=== PATIENT | female | born 1950 | race Caucasian/White ===

== ENCOUNTER → 2017-05-24 | Outpatient (CLI) | payer MEDICARE, OTHER ==
[~2017-05-24] MED LIST: ACETAMINOPHEN-1 EAC1 PO; ASPIRIN325 PO; CENTRUM SILVER1 EAC4 PO; CRESTOR10 MG PO; FISH OIL 1,001000 M2 PO; FLEXERIL PO; LEXAPRO 10 MG T10 M2 PO; LISINOPRIL20 MG PO; LOVENOX40 MG/0.4 SQ; NAPROSYN500 MG PO; NORCO 5-325 TA1 EAC1 PO; NORCO 5-325 TA1 EACH PO; NORVASC2.5 MG PO; PERCOCET 5-3251 EACH PO; PROAIR HFA8.5 GM INH; SAVELLA50 MG PO; TRAMADOL 50 MG50 MG PO; TRAZODONE HCL50 MG PO; UNK ANTIDEPRESSANT; VITAMIN D1000 UNI1 PO; [UNRECOGNIZED DRUG - OTHER] PO
== END ==
LOC: M.ULTRA 07:52
DX: R79.89 Other specified abnormal findings of blood chemistry (principal); R74.8 Abnormal levels of other serum enzymes

== ENCOUNTER 2018-01-16 13:52 | Emergency (ER) | payer MEDICARE, OTHER ==
[~2018-01-16] VITALS: Ht 167.6 cm; Wt 68.0 kg
[~2018-01-16 13:52] MED LIST changes: -LEXAPRO 10 MG T10 M2 PO; -NORVASC2.5 MG PO; -PERCOCET 5-3251 EACH PO
[2018-01-16] MEDS ORDERED: NORVASC2.5 MG PO (14:10)
[2018-01-16] MEDS ORDERED: LEXAPRO 10 MG T10 M2 PO (14:11)
[2018-01-16 14:39] LABS: ABSOLUTE LYMPHOCYTES 1.5 thou/uL (0.8-5.3); ABSOLUTE MONOCYTES 0.4 thou/uL (0.0-1.2); ABSOLUTE NEUTROPHILS 5.8 thou/uL (1.6-8.1); BASOPHILS 0.6 %; EOSINOPHILS 0.5 %; HEMOGLOBIN 11.5 gm/dL (12.0-15.0); LYMPHOCYTES 19.1 %; MCH 35.7 pg (26.0-34.0); MCHC 34.9 g/dL (28.0-37.0); MCV 102.1 fL (80.0-100.0); MONOCYTES 5.6 %; MPV 7.2 fl. (7.2-11.1); NUCLEATED RBCS 0 /100WBC; PLATELET COUNT* 369 thou/uL (150-400); POLYS 74.2 %; RBC 3.23 mil/uL (4.20-5.00); RDW-CV 14.5 % (10.5-14.5); WBC 7.8 thou/uL (4.0-11.0)
[2018-01-16 14:49] LABS: ALBUMIN 3.9 g/dL (3.4-5.0); CALCIUM 9.3 mg/dL (8.5-10.1); CREATININE 1.2 mg/dL (0.6-1.3); POTASSIUM 3.3 mmol/L (3.5-5.1); TOTAL BILIRUBIN 0.5 mg/dL (<0.1-1.0); TOTAL PROTEIN 8.1 g/dL (6.4-8.2)
[2018-01-16 14:49] LABS: URINE BILIRUBIN NEGATIVE (Negative); URINE BLOOD TRACE (Negative); URINE CLARITY CLEAR; URINE COLOR YELLOW; URINE GLUCOSE-RANDOM NEGATIVE (Negative); URINE KETONES NEGATIVE (Negative); URINE LEUKOCYTES-REFLEX 1+ (Negative); URINE NITRITE-REFLEX NEGATIVE (Negative); URINE PROTEIN TRACE (Negative); URINE UROBILINOGEN 0.2 E.U./dl (0.2-1.0)
[2018-01-16 15:05] LABS: HYALINE CASTS >10 Many /LPF (None Seen); SQUAMOUS >10 Many /LPF (0-3)
[2018-01-16 15:07] LABS: URIC ACID CRYSTALS 4-10 Moderate /LPF (None Seen)
[2018-01-16 15:08] LABS: BACTERIA-REFLEX 1-9 Few /HPF (None Seen); MUCUS None Seen strn/LPF (None Seen); URINE RBC 0-2 Rare /HPF (0-2)
[2018-01-16 15:09] LABS: URINE WBC-REFLEX 0-5 Rare /HPF (0-5)
[2018-01-16] MEDS ORDERED: FLEXERIL PO (16:01)
[2018-01-16] MEDS ORDERED: PERCOCET 5-3251 EACH PO (16:01)
[2018-01-16 16:40] VITALS: BP 149/82
== END 2018-01-16 16:41 | disposition home or self-care (01) ==
LOC: M.ERS 13:52
PROVIDERS: Emergency Medicine
DX: S22.31XA Fracture of one rib, right side, initial encounter for closed fracture (principal); R11.2 Nausea with vomiting, unspecified; I10 Essential (primary) hypertension; E78.5 Hyperlipidemia, unspecified; M79.7 Fibromyalgia; M19.90 Unspecified osteoarthritis, unspecified site; Z90.710 Acquired absence of both cervix and uterus; Z88.5 Allergy status to narcotic agent; Z88.6 Allergy status to analgesic agent; Z88.2 Allergy status to sulfonamides; W18.39XA Other fall on same level, initial encounter; Y93.89 Activity, other specified; Y92.89 Other specified places as the place of occurrence of the external cause; Y99.8 Other external cause status

== ENCOUNTER → 2018-02-13 | Outpatient (CLI) | payer MEDICARE, OTHER ==
[~2018-02-13] MED LIST changes: +LEXAPRO 10 MG T10 M2 PO; +NORVASC2.5 MG PO; +PERCOCET 5-3251 EACH PO
== END ==
LOC: M.MRI 02-08 15:58
DX: S62.397A Other fracture of fifth metacarpal bone, left hand, initial encounter for closed fracture (principal); G35 Multiple sclerosis; R29.6 Repeated falls; R29.90 Unspecified symptoms and signs involving the nervous system; G93.9 Disorder of brain, unspecified; X58.XXXA Exposure to other specified factors, initial encounter; Y93.89 Activity, other specified; Y92.89 Other specified places as the place of occurrence of the external cause; Y99.8 Other external cause status; Z91.81 History of falling

== ENCOUNTER → 2018-04-18 | Outpatient (CLI) | payer MEDICARE, OTHER | LOC: M.MRI 07:09 | DX: S83.242A Other tear of medial meniscus, current injury, left knee, initial encounter (principal); X58.XXXA Exposure to other specified factors, initial encounter; Y93.89 Activity, other specified; Y92.89 Other specified places as the place of occurrence of the external cause; Y99.8 Other external cause status ==

== ENCOUNTER → 2018-06-05 | Outpatient (CLI) | payer MEDICARE, OTHER | LOC: M.ULTRA 07:30 | DX: K70.30 Alcoholic cirrhosis of liver without ascites (principal); K76.0 Fatty (change of) liver, not elsewhere classified ==

== ENCOUNTER 2018-11-23 12:12 | Inpatient (IN) | payer MEDICARE, OTHER ==
[~2018-11-23] VITALS: Ht 167.6 cm; Wt 72.0 kg
[2018-11-23 12:45] VITALS: BP 126/58
[2018-11-23 13:47] LABS: PCO2 30.1 mmHg (35.0-45.0); PO2 65.6 mmHg (75.0-100.0); pH 7.564 (7.340-7.450)
[2018-11-23 14:11] LABS: HEMATOCRIT 35.5 % (37.0-47.0); HEMOGLOBIN 12.3 gm/dL (12.0-15.0); MCH 35.6 pg (26.0-34.0); MCHC 34.7 g/dL (28.0-37.0); MCV 102.3 fL (80.0-100.0); MPV 8.4 fl. (7.2-11.1); NUCLEATED RBCS 0 /100WBC; PLATELET COUNT* 295 thou/uL (150-400); RBC 3.47 mil/uL (4.20-5.00); RDW-CV 13.6 % (10.5-14.5); WBC 9.9 thou/uL (4.0-11.0)
[2018-11-23 14:25] LABS: CREATININE 1.4 mg/dL (0.6-1.3)
[2018-11-23 14:28] LABS: POTASSIUM 2.6 mmol/L (3.5-5.1)
[2018-11-23 14:30] LABS: ALBUMIN 2.4 g/dL (3.4-5.0); TOTAL BILIRUBIN 0.9 mg/dL (<0.1-1.0); TOTAL PROTEIN 6.2 g/dL (6.4-8.2)
[2018-11-23 14:44] LABS: ABSOLUTE LYMPHOCYTES 0.5 thou/uL (0.8-5.3); ABSOLUTE MONOCYTES 0.3 thou/uL (0.0-1.2); ABSOLUTE NEUTROPHILS 9.1 thou/uL (1.6-8.1)
[2018-11-23 14:45] LABS: PLATELET ESTIMATE ADEQUATE
--- NOTE | 2018-11-23 14:54 | EKG ---
[place] [address] ELECTROCARDIOGRAM REPORT Name: VANCE STEINBERG Room: [address] ADM IN M.R.#: [id number] Admission: 11/23/18 Attend Phys: Tadeo Foss MD Discharge: Date of : 50 Report #: [id number] THIS REPORT FOR: //name// [facility] Test Date: 2018-11-23 Test Time: 14:49:41 Pat Name: VANCE STEINBERG Department: Room: [address] Gender: F Global Account Manager: MARY : 1950 Requested By: Tadeo Foss Order Number: [id number] Reading MD: Lexx Radford Measurements Intervals [place] Rate: 95 P: 49 OR: 159 QRS: -26 QRSD: 111 T: 45 QT: 453 QTc: 570 Interpretive Statements Sinus rhythm Probable left atrial enlargement Borderline left axis deviation RSR' in V1 or V2, probably normal variant Prolonged QT interval Compared to ECG 09/24/2015 21:20:33 Prolonged QT interval now present Electronically Signed On 11-23-2018 14:53:57 CDT by Lexx Radford [email or web address] <ELECTRONICALLY SIGNED> By: Lexx Radford MD, [facility] 11/23/18 1453 1449 1449 Lexx Radford MD, [facility] /EPI
[2018-11-23 15:37] VITALS: BP 118/62
[2018-11-23 16:01] LABS: CALCIUM 8.5 mg/dL (8.5-10.1); CREATININE 1.3 mg/dL (0.6-1.3)
[2018-11-23 20:00] VITALS: BP 95/52
[2018-11-23 20:19] LABS: CALCIUM 8.5 mg/dL (8.5-10.1); CREATININE 1.3 mg/dL (0.6-1.3); POTASSIUM 3.2 mmol/L (3.5-5.1)
[2018-11-23 20:33] LABS: URINE BILIRUBIN NEGATIVE (Negative); URINE BLOOD NEGATIVE (Negative); URINE CLARITY CLEAR; URINE COLOR YELLOW; URINE GLUCOSE-RANDOM NEGATIVE (Negative); URINE KETONES NEGATIVE (Negative); URINE LEUKOCYTES-REFLEX NEGATIVE (Negative); URINE NITRITE-REFLEX NEGATIVE (Negative); URINE PROTEIN NEGATIVE (Negative); URINE SPECIFIC GRAVITY <= 1.005 (1.005-1.030); URINE UROBILINOGEN 0.2 E.U./dl (0.2-1.0)
[2018-11-23] MEDS ORDERED: FLEXERIL PO (20:44)
[2018-11-24] VITALS (7 sets, daily range): BP systolic 90–130; BP diastolic 46–74
[2018-11-24 04:49] LABS: HEMATOCRIT 30.9 % (37.0-47.0); HEMOGLOBIN 10.5 gm/dL (12.0-15.0); MCH 35.4 pg (26.0-34.0); MPV 7.9 fl. (7.2-11.1); RBC 2.97 mil/uL (4.20-5.00); RDW-CV 13.7 % (10.5-14.5); WBC 4.7 thou/uL (4.0-11.0)
[2018-11-24 05:06] LABS: CALCIUM 8.7 mg/dL (8.5-10.1); MAGNESIUM 1.5 mg/dL (1.8-2.4); POTASSIUM 3.2 mmol/L (3.5-5.1)
--- NOTE | 2018-11-24 05:14 | NUR ---
ASSUMED CARE OF PT AFTER REPORT AT 1930. PT A&OX4. VSS. PHYSICAL ASSESSMENT COMPLETED AND CHARTED. PT ON O2 AT 2L NC. PT TRACING SR ON TELE. PT UPSTANDBY TO RESTROOM. PT COMPLAINED OF BODY ACHE- DR JEFFERY INFORMED WITH NEW ORDER. MEDS GIVEN PER JUN. URINE SPECIMEN SENT TO LAB. PT ABLE TO SLEEP WELL ON BED. CALL LIGHT WITHIN REACH.
--- NOTE | 2018-11-24 07:19 | NUR ---
INITAL ASSESSMENT COMPLETED CHARTED. VSS. PT TITRATED TO 1LPM O2. TRACING SR ON MONITOR. PT C/O INTERMITTENT RIB PAIN WITH MOVEMENT AND COUGHING. IS AND FLUTTER VALVE AT BEDSIDE. PT ENCOURAGED TO USE THESE, VOICED UNDERSTANDING. PT DENIES ANY FURTHER NEEDS AT THSI TIME. HOURLY ROUNDING IN PLACE FOR PT SAFETY. CLWR.
--- NOTE | 2018-11-24 09:10 | NUR ---
PT HAS BEEN TITRATED TO ROOM AIR. O2 SAT 98%
[2018-11-25] VITALS: BP 123/60
[2018-11-25 04:00] VITALS: BP 131/73
[2018-11-25 04:54] LABS: ABSOLUTE LYMPHOCYTES 0.4 thou/uL (0.8-5.3); ABSOLUTE MONOCYTES 0.5 thou/uL (0.0-1.2); ABSOLUTE NEUTROPHILS 13.8 thou/uL (1.6-8.1); BASOPHILS 0.1 %; HEMATOCRIT 30.5 % (37.0-47.0); HEMOGLOBIN 10.2 gm/dL (12.0-15.0); LYMPHOCYTES 2.5 %; MCH 35.1 pg (26.0-34.0); MCHC 33.4 g/dL (28.0-37.0); MONOCYTES 3.3 %; MPV 7.8 fl. (7.2-11.1); NUCLEATED RBCS 0 /100WBC; PLATELET COUNT* 241 thou/uL (150-400); POLYS 94.1 %; WBC 14.6 thou/uL (4.0-11.0)
[2018-11-25 05:02] LABS: CALCIUM 8.9 mg/dL (8.5-10.1); MAGNESIUM 1.5 mg/dL (1.8-2.4)
--- NOTE | 2018-11-25 05:16 | NUR ---
ASSUMED CARE OF PT AFTER REPORT AT 1930. PT A&OX4. VSS. PHYSICAL ASSESSMENT COMPLETED AND CHARTED. PT O2 SAT 87-89%. HOOKED BACK TO O2 AT 2L NC WITH O2 SAT OF 92&. PT TRACING SR/ST ON TELE. PT UPADLIB TO RESTROOM. PT COMPLAINED OF RIB PAIN DUE TO COUGHING- PAIN MEDS GIVEN PER JUN. SPUTUM SPECIMEN SENT TO LAB. CALL LIGHT WITHIN REACH.
[2018-11-25 07:50] VITALS: BP 122/68
[2018-11-25 11:55] VITALS: BP 137/69
--- NOTE | 2018-11-25 14:28 | NUR ---
RECEIVED REPORT AND ASSUMED CARE AT 0700. VSS. CARDIAC MONITORING IN PLACE. PT DENIES COMPLAINTS OF PAIN. ASSESSMENT COMPLETED CHARTED. DISCUSSED PLAN OF CARE, VERBALIZED UNDERSTANDING. PT UP AD LIDIA IN ROOM, ON 3L NC. PLAN TO WEAN OFF O2. BED LOCKED IN LOWEST POSITION, CALL LIGHT WITHIN REACH. MEDICATION ADMIN PER EMAR.
[2018-11-25 15:57] VITALS: BP 151/80
[2018-11-25 20:00] VITALS: BP 149/84
[2018-11-26] VITALS: BP 156/69
[2018-11-26 04:00] VITALS: BP 159/96
--- NOTE | 2018-11-26 05:32 | NUR ---
ASSUMED CARE OF PT AFTER REPORT AT 1930. PT A&OX4. VSS. PHYSICAL ASSESSMENT COMPLETED AND CHARTED. PT O2 SAT 81-84% AT 3L. INCREASED TO 3.5L NC. PT TRACING SR/ST ON TELE. PT UP ADLIB TO RESTROOM. PT COMPLAINED OF LOWER RIBS & RIGHT LEG PAIN. CALL LIGHT WITHIN REACH.
--- NOTE | 2018-11-26 07:15 | NUR ---
CHANGE OF SHIFT, BEDSIDE REPORT GIVEN PATIENT SEEN AT BEDSIDE, IN BED RESTING ASSUMED PATIENT CARE
[2018-11-26 08:00] VITALS: BP 159/74
[2018-11-26] MEDS ORDERED: ROBITUSSIN AC Liquid PO (08:21)
[2018-11-26] MEDS ORDERED: PROBIOTIC1 EAC1 PO (08:21)
[2018-11-26] MEDS ORDERED: PREDNISONE 10 M10 MG PO (08:21)
[2018-11-26] MEDS ORDERED: AZITHROMYCIN 2250 MG PO (08:21)
[2018-11-26] MEDS ORDERED: VENTOLIN HFA 1818 GM INH (08:21)
[2018-11-26] MEDS ORDERED: CEFDINIR300 MG PO (08:21)
[2018-11-26 11:41] VITALS: BP 115/79
--- NOTE | 2018-11-26 13:27 | NUR ---
Pt is A&O. Resides at home with her , normally active and independent. Pt has a walker and 2 canes at home that she can use if needed, does not currently use either. Hx of [facility]. No hx of SNF. Pt stated that since her son in July she has felt more down, Pt states that she has 2 children and both are . Supportive family. DC delayed d/t high o2 needs. Following.
[2018-11-26 15:49] VITALS: BP 137/72
[2018-11-26 20:00] VITALS: BP 132/66
[2018-11-27] VITALS: BP 150/80
[2018-11-27 03:55] VITALS: BP 154/90
[2018-11-27 04:34] LABS: HEMATOCRIT 30.7 % (37.0-47.0); HEMOGLOBIN 10.8 gm/dL (12.0-15.0); MCHC 35.1 g/dL (28.0-37.0); MCV 102.6 fL (80.0-100.0); MPV 7.5 fl. (7.2-11.1); RBC 2.99 mil/uL (4.20-5.00); RDW-CV 14.3 % (10.5-14.5); WBC 7.7 thou/uL (4.0-11.0)
[2018-11-27 05:00] LABS: CALCIUM 8.7 mg/dL (8.5-10.1); MAGNESIUM 2.1 mg/dL (1.8-2.4); POTASSIUM 3.9 mmol/L (3.5-5.1)
--- NOTE | 2018-11-27 05:31 | NUR ---
ASSUMED CARE OF PT AFTER REPORT AT 1930. PT A&OX4. VSS. PHYSICAL ASSESSMENT COMPLETED AND CHARTED. PT ON O2 AT 2L NC. PT TRACING SR/ST ON TELE. PT UP ADLIB TO RESTROOM. PT COMPLAINED OF LOWER RIB PAIN- MEDS GIVEN PER JUN. PT WITH 7X BOWEL MOVEMENT YESTERDAY-DR COSTELLO INFORMED WITH NEW ORDER. H1N1 NASAL SWAB & STOOL SPECIMEN SENT TO LAB ORDERED. CDIFF PRECAUTION IN PLACE. MAGNESIUM 1.4. ELECTROLYTE PROTOCOL IN PLACE. PT ABLE TO SLEEP WELL ON BED. CALL LIGHT WITHIN REACH.
[2018-11-27 08:09] VITALS: BP 158/84
--- NOTE | 2018-11-27 08:39 | CON ---
[facility] [address] [place] [address] CONSULTATION Name: VANCE STEINBERG Room: [address] IN M.R.#: [id number] Admission: 11/23/18 Attend Phys: Tadeo Foss MD Discharge: Date of : 50 Report #: [id number] THIS REPORT FOR: //name// CC: Tadeo Lee DO DATE OF SERVICE: 11/26/2018 PULMONARY CONSULTATION LOCATION: Room 202. ATTENDING PHYSICIAN: Tadeo Foss M.D. INDICATION FOR CONSULTATION: Hypoxemia and interstitial infiltrates. CLINICAL SUMMARY: The patient is a pleasant 68-year-old female, very remote smoker, with no prior history of lung disease. The patient was admitted to the hospital with 2- to 3-week history of increasing cough and shortness of breath. She had some low-grade fever. About 3 weeks ago, her 's young step children and grandchildren came to visit. She was exposed to lots of sick people, and she states she became ill then, she started coughing, coughing up some scant sputum production with low-grade fever and chills. She was seen in the office on Monday, I believe that was the , and she was hypoxic and then, she was discharged with doxycycline therapy and an inhaler. She took some breathing treatments. Her O2 sats were still low in the 80-85% range. The patient was short of breath walking across the room and she is placed on 2 liters here. She seemed clinically improved with steroids and antibiotics. When they were getting ready to discharge her home, they were walking and ambulating her. O2 sats still dropped in the 80-85% range on increasing the FiO2 and it appears that she was on 12 liters, she was still saturating 88-89%. She was not fit to go home and I was consulted. She has not had lung disease before. Again, very remote smoker, maybe 1 pack a day for 5 years and x-rays and CT of the abdomen in 2018 were all clear. Like I said, the 11/19 outpatient chest x-ray showed interstitial infiltrates, which was new from a year ago and certainly, the CAT scan is impressive with upper lobe interstitial infiltrates, also with some alveolar filling. No masses or adenopathy were noted, though. I was asked to see her and I did interview. OTHER PAST MEDICAL PROBLEMS: She has had a fracture of her tibia. She has had pneumonia in the past and she has had rib fractures in the past. ALLERGIES: SHE HAS ALLERGIES OR INTOLERANCE TO CODEINE, MORPHINE, SULFA WHICH GIVES HER NAUSEA AND VOMITING AND AMOXICILLIN [place] [address] CONSULTATION Name: VANCE STEINBERG Room: [address] IN M.R.#: [id number] Admission: 11/23/18 Attend Phys: Tadeo Foss MD Discharge: Date of : 50 Report #: [id number] MEDICATIONS: Currently, other medications at home included amlodipine 2.5 mg daily and then Lexapro 10 mg daily. She was on oxycodone, she is off that now at 5/325, which is Percocet q. 4 hours. PAST SURGICAL HISTORY: Includes hysterectomy, osteotomy, bunionectomies, right knee arthroscopy, ORIF of right leg and a tibial plateau fracture. She has had previous T and A, excision of ganglion cyst and right total knee replacement. Other medical problems show hypertension, hyperlipidemia, mild elevation of her LFTs in the past and microcytic anemia. CURRENT MEDICATIONS: Include Solu-Medrol 40 mg IV push every 8 hours, breathing treatments 4 times a day, was on prednisone 40 mg a day that has been discontinued, also lactobacillus, cefdinir, Omnicef 300 mg b.i.d., azithromycin 500 mg daily and zolpidem 5 mg at bedtime. She has had potassium supplements. She is not on oxygen at home. FAMILY HISTORY: Negative for premature cardiopulmonary disease or any other significant lung problems. 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 She is now retired. She did work at an [employer] office, and she states she had some flooding, had some wet asbestosis particles that she may have been held for about a week or so, but after that, they cleaned it up. It was not aerosolized. She denies any other occupational exposure. Again, about a 5-pack-year history of smoking. States she quit about 35-40 years ago. Denies any alcohol or illicit drug use. REVIEW OF SYSTEMS: A 14-point review of systems reviewed and negative except for pertinent positives noted in the HPI. PHYSICAL EXAMINATION: GENERAL: This is a pleasant 68-year-old female who remembers me from several years ago. VITAL SIGNS: Stable. She is in no distress, on 2 liters at rest at this time. Blood pressure is 115/78, heart rate is 90, respirations 16, temperature is 37 degrees, saturation on 2 liters is 98% at least at this time. She is 5 feet 5 inches tall, weight 71 kilograms or 158 pounds and BMI is 25. HEENT: Unremarkable. Teeth are in fair repair. Pharynx is clear. NECK: Supple without nodes, not injected. No masses or adenopathy on neck exam. CHEST: Shows few bibasilar crackles with mildly prolonged expiratory phase. No other wheeze or rhonchi is noted, at least at this time. CARDIOVASCULAR: Regular rate and rhythm without murmur, [place] [address] CONSULTATION Name: VANCE STEINBERG Room: [address] IN .R.#: [id number] Admission: 11/23/18 Attend Phys: Tadeo Foss MD Discharge: Date of : 50 Report #: [id number] rate is 90. ABDOMEN: Soft without hepatosplenomegaly. EXTREMITIES: No cyanosis, clubbing or edema. No nail clubbing noted either in the toenails are fingernails. She has a slight tremor of her right hand. NEUROLOGIC: Otherwise, nonfocal and intact. LABORATORY DATA: From 11/25, hemoglobin is 10, white count is 14,600, MCV is 105, normal differential and platelets are 241,000. Actually, the lymphocytes are low at 400-500 and neutrophils are high at 13,000 and 9000 respectively. Immunology: Rheumatoid factor, BLAYNE, pANCA, cANCA and atypical pANCA are pending. ABGs from 11/23 on 3 liters showed a pO2 of 65, pH of 7.56, pCO2 is 30, bicarbonate is 26 and sats 92%. Carboxyhemoglobin is only 0.2. IMAGING: Chest x-ray and CT of the chest shows upper lobe infiltrates. This was present from 11/19 to present, which was a week ago and then also not from the CT scan from 2018. She has CT of abdomen then also with lower lobes of the lungs were clear. No PFTs on this patient. IMPRESSION: 1. Upper lobe interstitial infiltrates, etiology unclear with hypoxemia and desaturation. 2. Interstitial infiltrates with some alveolar filling. Differential includes sarcoidosis, asbestos lung disease, silicosis, may be some other nonspecific atypical interstitial pneumonitis and diffuse alveolar damage which may be contributing ____ cryptogenic pulmonary fibrosis may be another consideration. PLAN: We will repeat another chest x-ray tomorrow to see how she is doing on the steroids and the antibiotics. If she still desaturating, may need to consider whether we need to do either an inpatient or an outpatient bronchoscopy on her and we will proceed from there. The patient is considering this. She is not anxious for the bronchoscopy to be done, at least at this time, but we will keep that in mind, and certainly if she has persistent infiltrates in 4-8 weeks, she will need a followup CT of the chest and full PFTs, and depending on those results, she may need a upper lobe biopsy and a VATS procedure, either by Dr. Jan [facility] at [facility] or another cardiothoracic surgeon of her choosing. Certainly needs full PFTs to see if she has any obstructive and/or interstitial lung disease. Continue with nebulizer treatments and oxygen, may need to do repeat exercise oximetry and see if she really does desaturate that fast quickly. [address] [place] [address] CONSULTATION Name: VANCE STEINBERG Room: M.202-P ADM IN M.R.#: [id number] Admission: 11/23/18 Attend Phys: Tadeo Foss MD Discharge: Date of : 50 Report #: [id number] Thanks again for allowing us to participate in this nice lady's care. Keep you up to date on her progress. <ELECTRONICALLY SIGNED> By: Sarbjit Davenport MD 11/27/18 0839 1509 [id number] Davenport MD /nt
--- NOTE | 2018-11-27 09:35 | NUR ---
ASSUMED CARE OF PT THIS AM AROUND 0715- DISPATCHER SERVICE OR WORK IN PLACE ORDERED, TRACING SR- UPON ASSESSMENT PT NOTED TO BE RESETING IN BED, WATCHING TV- PT A&O X4- CONTINENT OF B/B- UP AD-LIDIA IN ROOM, STEADY GAIT NOTED- VSS, O2 SAT 93% ON 2L VIA NC-COURSE LUNG SOUNDS NOTED, DYSPNEA NOTED- NON-PRODUCTIVE COUGH REPORTED- ABD SOFT/ROUND/NON-TENDER, BS X4 QUADS- BM REPORTED THIS AM- ISOLATION IN PLACE R/T PENDING STOOL FOR C-DIFF- IV NOTED TO RIGHT FA INTACT AND SL- GOOD PO INTAKE NOTED THIS AM WITH BREAKFAST- PT DENIES ANY C/O PAIN/DISCOMFORT AT THIS TIME- CALL LIGHT AND PERSONAL BELONGINGS WITH IN REACH- HOURLY ROUNDS IN PLACE R/T SAFETY/NEEDS- ALL NEEDS MET AT THIS TIME-WCTM
[2018-11-27 14:09] LABS: ANA INTERPRETATION Negative (Negative)
[2018-11-27 15:40] VITALS: BP 166/88
--- NOTE | 2018-11-27 16:02 | NUR ---
PT CURRENTLY RESTING IN BED, WATCHING TV- [employer] MONITOR NOTED TO BE D/C'D THIS SHIFT, MS STATUS IN PLACE INDICATED- GOOD PO INTAKE NOTED THIS SHIFT WITH MEALS- ECHO ORDERED AND COMPLETED THIS SHIFT WITH RESULTS PENDING- PT C/O NECK PAIN X1 THIS SHIFT WITH PRN FLEXERIL GIVEN AT 1503 PER PT REQUEST- PT REPORTS MEDICATION TO BE EFFECTIVE- LASIX 40MG X1 ORDERED AND GIVEN THIS SHIFT- PT MAKES NEEDS KNOWN- ALL NEEDS MET AT THIS TIME-WCTM
--- NOTE | 2018-11-27 17:52 | 2DMMODE ---
[place] [address] 2 D/M-MODE ECHOCARDIOGRAM Name: VANCE STEINBERG Room: [address] IN [facility]#: [id number] Admission: 11/23/18 Attend Phys: Tadeo Foss, Discharge: Date of : 50 Date of Service: 11/27/18 1752 Report #: [id number] THIS REPORT FOR: //name// APPROVED REPORT Study performed: 11/27/2018 14:58:42 EXAM: Comprehensive 2D, Doppler, and color-flow Echocardiogram Patient Location: In-Patient Room #: 202 Status: routine BSA: 1.81 HR: 87 bpm BP: 158/84 mmHg Rhythm: NSR Other Information Study Quality: Good Indications Dyspnea 2D Dimensions IVSd: 12.35 (7-11mm) LVOT Diam: 20.64 (18-24mm) LVDd: 36.69 mm PWd: 9.95 (7-11mm) Ascending Ao: 30.52 (22-36mm) LVDs: 20.50 (25-40mm) Aortic Root: 31.31 mm Volumes Left Atrial Volume (Systole) LA ESV Index: 16.90 mL/m2 Aortic Valve AoV Peak Han.: 1.47 m/s AO Peak Gr.: 8.60 mmHg LVOT Max P.79 mmHg AO Mean Gr.: 4.94 mmHg LVOT Mean P.98 mmHg LVOT Max V: 1.20 m/s AO V2 VTI: 29.32 cm LVOT Mean V: 0.81 m/s KASSY (VTI): 2.86 cm2 LVOT V1 VTI: 25.08 cm Mitral Valve E/A Ratio: 1.00 MV Decel. Time: 132.60 ms MV E Max Han.: 0.96 m/[place] [address] 2 D/M-MODE ECHOCARDIOGRAM Name: VANCE STEINBERG LAKEISHA Room: [address] IN .R.#: [id number] Admission: 11/23/18 Attend Phys: Tadeo Foss, Discharge: Date of : 50 Date of Service: 11/27/18 1752 Report #: [id number] MV PHT: 38.46 ms MVA (PHT): 5.72 cm2 TDI E/Lateral E': 8.73 E/Medial E': 10.67 Medial E' Han.: 0.09 m/s Lateral E' Han.: 0.11 m/s Pulmonary Valve PV Peak Han.: 0.86 m/s PV Peak Gr.: 2.95 mmHg Tricuspid Valve RAP Estimate: 5.00 mmHg TR Peak Gr.: 21.34 mmHg RVSP: 26.00 mmHg PA Pressure: 26.00 mmHg Left Ventricle The left ventricle is normal size. There is normal LV segmental wall motion. There is normal left ventricular wall thickness. Left ventricular systolic function is normal. LVEF is 65-70%. Grade I - abnormal relaxation pattern. Right Ventricle The right ventricle is normal size. The right ventricular systolic function is normal. Atria The left atrium size is normal. The right atrium size is normal. Aortic Valve The aortic valve is normal in structure. No aortic regurgitation is present. There is no aortic valvular stenosis. Mitral Valve The mitral valve is normal in structure. There is no mitral valve regurgitation noted. No evidence of mitral valve stenosis. Tricuspid Valve The tricuspid valve is normal in structure. Trace tricuspid regurgitation. No pulmonary hypertension. Pulmonic Valve The pulmonary valve is normal in structure. There is no pulmonic [place] [address] 2 D/M-MODE ECHOCARDIOGRAM Name: VANCE STEINBERG Room: [address]#: [id number] Admission: 11/23/18 Attend Phys: Tadeo Foss, Discharge: Date of : 50 Date of Service: 11/27/18 1752 Report #: [id number] Great Vessels The aortic root is normal in size. IVC is normal in size and collapses >50% with inspiration. Pericardium There is no pericardial effusion. <Conclusion> The left ventricle is normal size. There is normal left ventricular wall thickness. Left ventricular systolic function is normal. LVEF is 65-70%. Grade I - abnormal relaxation pattern. Trace tricuspid regurgitation. No pulmonary hypertension. IVC is normal in size and collapses >50% with inspiration. <ELECTRONICALLY SIGNED> By: Sonu Mckeon MD, FACC 11/27/181751 51 51 Sonu Mckeon MD, FACC /INF
[2018-11-27 20:00] VITALS: BP 161/68
--- NOTE | 2018-11-27 20:33 | CON ---
[address] [address] CONSULTATION Name: VANCE STEINBERG Room: [address] IN M.R.#: [id number] Admission: 11/23/18 Attend Phys: Tadeo Foss MD Discharge: Date of : 50 Report #: [id number] THIS REPORT FOR: //name// CC: Tadeo Lee DATE OF SERVICE: 11/26/2018 CONSULTATION: Infectious Diseases. HISTORY OF PRESENT ILLNESS: Ms Rosenthal is a 68-year-old white female admitted to [facility] 11/23 with complaint of severe cough, with shortness of breath associated with fevers and chills. This has been going on for approximately 10 days. The patient has been treated with doxycycline. She did not improve. She was brought to the hospital and given Rocephin and then changed to cefdinir. She is also given azithromycin. The patient was tentatively scheduled to go home earlier this morning, but was found to have continued hypoxia with saturation of just 90%. She was kept in the hospital and Infectious Disease and Pulmonary consultations were requested. PAST MEDICAL HISTORY: Significant for hypertension, hyperlipidemia, fibromyalgia, fatty liver, and depression. PAST SURGICAL HISTORY: Includes open reduction and internal fixation of a fractured femur and a right total hip replacement. ALLERGIES: THE PATIENT NOTES ALLERGIES TO AMOXICILLIN AND SULFA WELL MORPHINE. FAMILY HISTORY: Notable that her was diagnosed with bronchitis shortly before she became ill with the fever and cough. SOCIAL HISTORY: The patient is . She does not use tobacco, alcohol or drugs. REVIEW OF SYSTEMS: GENERAL: Fevers, chills, but mostly overwhelming weakness. The patient still hopes to be able to go home in the morning. The patient denies headache, sinus congestion, cognitive dysfunction, sore throat, trouble swallowing. The patient denies any angina, syncope or chest pain. She has the cough, which is minimally productive. She has had dyspnea, particularly with exertion and shortness of breath, which she says feels better now. The patient denies nausea, vomiting, diarrhea, constipation. She denies urinary complaints. She is not having any trouble with her extremities. PHYSICAL EXAMINATION: [place] [address] CONSULTATION Name: VANCE STEINBERG Room: [address] IN [facility].#: [id number] Admission: 11/23/18 Attend Phys: Tadeo Foss MD Discharge: Date of : 50 Report #: [id number] GENERAL: The patient appears her stated age, ill, but comfortable, not in any distress. VITAL SIGNS: Show maximum measured temperature 99.2. SKIN: Shows no rash, lesion or exanthem. ENT: Negative. Oral cavity is normal. NECK: Supple. HEART: Sounds S1, S2. LUNGS: Breath sounds are diminished. ABDOMEN: Belly is thin, soft, not tender. EXTREMITIES: Unremarkable without edema. LABORATORY STUDIES: The white count was initially 4.7 and after steroids, it is up to 14.6. Hemoglobin has gone from 12.3-10.2, hematocrit 30.5, platelets normal. Electrolytes, BUN and creatinine are normal. Glucose is 130. The liver function tests show mild elevation of the enzymes with SGOT 57, alkaline phosphatase 147. The laboratory shows that a sputum specimen is showing only yeast. Blood cultures are negative. Dr. Davenport requested urinary antigens for legionella and pneumococcus which are pending. He also ordered a respiratory viral panel, which is pending. The CT scan showed interstitial infiltrates. ASSESSMENT AND PLAN: In summary, we have relatively healthy 68-year-old with acute pneumonitis. I concur with treatments with azithromycin plus cephalosporins. I would like to use Rocephin IV while she is in the hospital. In addition to these studies Dr. Davenport ordered, I would like to add mycoplasma titers. The patient has developed some diarrhea here in the hospital, so we can check for Clostridium difficile and add some probiotics. We will also check a BNP to make sure there is not a component of a heart failure. Overall, it looks like the patient is doing better. If She continues to have satisfactory saturation, she probably could go home on azithromycin and Omnicef to complete a 10-14 day course of antibiotic therapy. She should follow closely with her primary care particularly so that he can check the results of the newest round of the laboratory studies, which have been ordered. Leukocytosis could well be affect from the steroids. The patient do not look septic or toxic, so this is not a reason not to discharge the patient. I appreciate the opportunity of input in the care of this pleasant patient. Thank you for requesting Infectious Disease input. <ELECTRONICALLY SIGNED> By: Austin Zendejas MD 11/27/18 2033 0752 [id number] Zendejas MD /rafy
[2018-11-28 04:00] VITALS: BP 158/85
--- NOTE | 2018-11-28 04:43 | NUR ---
ASSUMED CARE OF PT AFTER REPORT AT 1930. PT A&OX4. VSS. PHYSICAL ASSESSMENT COMPLETED AND CHARTED. PT ON O2 AT 2L NC. PT ON MEDSURG STATUS. PT UPADLIB TO RESTROOM. PT COMPLAINED OF LOWER RIB, HEAD & NECK PAIN- MEDS GIVEN PER MAR. PT ABLE TO SLEEP WELL ON BED. CALL LIGHT WITHIN REACH.
[2018-11-28 06:09] LABS: CALCIUM 8.7 mg/dL (8.5-10.1); MAGNESIUM 1.9 mg/dL (1.8-2.4); POTASSIUM 3.6 mmol/L (3.5-5.1)
--- NOTE | 2018-11-28 07:15 | NUR ---
CHANGE OF SHIFT, BEDSIDE REPORT GIVEN PATIENT SEEN AT BEDSIDE, IN BED RESTING ASSUMED PATIENT CARE
[2018-11-28 07:39] LABS: POTASSIUM 2.4 mmol/L (3.5-5.1)
[2018-11-28 07:39] LABS: HIV-1/HIV-2 ANTIBODY Non Reactive (Non Reactive)
[2018-11-28 08:00] VITALS: BP 140/80
[2018-11-28] MEDS ORDERED: AZITHROMYCIN 2250 MG PO (09:58)
[2018-11-28] MEDS ORDERED: CEFDINIR300 MG PO (09:58)
[2018-11-28] MEDS ORDERED: SINGULAIR 10 MG10 M1 PO (09:58)
[2018-11-28] MEDS ORDERED: PREDNISONE 10 M10 MG PO (09:58)
[2018-11-28 12:00] VITALS: BP 152/85
[2018-11-28 14:05] VITALS: BP 152/85
[2018-11-28 16:00] VITALS: BP 148/82
[2018-11-28 20:00] VITALS: BP 143/69
[2018-11-28 21:10] LABS: MYCOPLASMA PNEUMONIA IgM <770 U/mL (0-769)
[2018-11-28 22:06] LABS: MYCOPLASMA PNEUMONIA IgG <100 U/mL (0-99)
[2018-11-29] VITALS: BP 136/67
--- NOTE | 2018-11-29 05:06 | NUR ---
ASSUMED CARE OF PT AFTER REPORT AT 1930. PT A&OX4. VSS. PHYSICAL ASSESSMENT COMPLETED AND CHARTED. PT ON O2 AT 2L NC. PT ON MEDSURG STATUS. PT UPADLIB TO RESTROOM. PT COMPLAINED OF SHOULDER PAIN- MEDS GIVEN PER MAR. DENIES ANY PAIN OR SOA. CALL LIGHT WITHIN REACH.
[2018-11-29 08:00] VITALS: BP 154/91
[2018-11-29 08:45] VITALS: BP 152/85
--- NOTE | 2018-11-29 13:19 | NUR ---
DISCHARGE NOTE - IV REMOVED WITHOUT DIFFICULTY. ALL BELONGINGS SENT WITH PT. NO QUESTIONS ABOUT INSTRUCTIONS.
[2018-11-30 22:10] LABS: ADENOVIRUS Negative (Negative); INFLUENZA A Negative (Negative); INFLUENZA B Negative (Negative); METAPNEUMOVIRUS Negative (Negative); PARAINFLUENZA 1 Negative (Negative); PARAINFLUENZA 2 Negative (Negative); PARAINFLUENZA 3 Negative (Negative); RHINOVIRUS Positive (Negative); RSV A Negative (Negative); RSV B Negative (Negative)
== END 2018-11-29 13:20 | disposition home or self-care (01) | DRG 871 ==
LOC: M.2W 12:12
PROVIDERS: Internal Medicine Infectious Disease; ADMIT Internal Medicine
DX: A41.9 Sepsis, unspecified organism (principal); J18.9 Pneumonia, unspecified organism; J96.01 Acute respiratory failure with hypoxia; Z96.651 Presence of right artificial knee joint; E78.5 Hyperlipidemia, unspecified; F32.9 Major depressive disorder, single episode, unspecified; M19.90 Unspecified osteoarthritis, unspecified site; G89.29 Other chronic pain; M79.7 Fibromyalgia; D53.9 Nutritional anemia, unspecified; I11.0 Hypertensive heart disease with heart failure; J04.10 Acute tracheitis without obstruction; I50.9 Heart failure, unspecified; Z88.6 Allergy status to analgesic agent; Z88.1 Allergy status to other antibiotic agents; Z90.710 Acquired absence of both cervix and uterus; Z87.81 Personal history of (healed) traumatic fracture; Z83.6 Family history of other diseases of the respiratory system; Z79.899 Other long term (current) drug therapy; Z99.81 Dependence on supplemental oxygen

== ENCOUNTER → 2019-01-08 | Outpatient (CLI) | payer MEDICARE, OTHER ==
[~2019-01-08] MED LIST changes: +AZITHROMYCIN 2250 MG PO; +CEFDINIR300 MG PO; +PREDNISONE 10 M10 MG PO; +PROBIOTIC1 EAC1 PO; +ROBITUSSIN AC Liquid PO; +SINGULAIR 10 MG10 M1 PO; +VENTOLIN HFA 1818 GM INH
== END ==
LOC: M.PUL 01-02 14:37
DX: R91.8 Other nonspecific abnormal finding of lung field (principal); J18.9 Pneumonia, unspecified organism

== ENCOUNTER → 2020-10-27 | Outpatient (CLI) | payer MEDICARE, OTHER | LOC: M.MRI 08:38 | PROVIDERS: ATTEND Family Medicine | DX: S76.211A Strain of adductor muscle, fascia and tendon of right thigh, initial encounter (principal); S32.421A Displaced fracture of posterior wall of right acetabulum, initial encounter for closed fracture; M25.551 Pain in right hip; M54.5 Low back pain; M25.451 Effusion, right hip; X58.XXXA Exposure to other specified factors, initial encounter; Y92.89 Other specified places as the place of occurrence of the external cause; Y93.89 Activity, other specified; Y99.8 Other external cause status ==

== ENCOUNTER → 2020-11-05 | Outpatient (CLI) | payer MEDICARE, OTHER ==
[~2020-11-05] MED LIST changes: +CIPRO500 M1 PO; +COZAAR100 MG PO; +FLONASE 0.05%50 MCG NARES; +NORVASC10 MG PO; +PROTONIX 20 MG20 M1 PO
[2020-11-05 11:19] LABS: ABSOLUTE BASOPHILS 0.1 thou/uL (0.0-0.2); ABSOLUTE EOSINOPHILS 0.3 thou/uL (0.0-0.7); ABSOLUTE LYMPHOCYTES 1.5 thou/uL (0.8-5.3); ABSOLUTE MONOCYTES 0.6 thou/uL (0.0-1.2); ABSOLUTE NEUTROPHILS 4.9 thou/uL (1.6-8.1); EOSINOPHILS 3.7 %; HEMATOCRIT 38.3 % (37.0-47.0); HEMOGLOBIN 13.6 gm/dL (12.0-15.0); LYMPHOCYTES 20.7 %; MCH 36.7 pg (26.0-34.0); MCHC 35.5 g/dL (28.0-37.0); MCV 103.2 fL (80.0-100.0); MONOCYTES 7.5 %; MPV 7.4 fl. (7.2-11.1); NUCLEATED RBCS 0 /100WBC; PLATELET COUNT* 276 thou/uL (150-400); POLYS 67.1 %; RBC 3.72 mil/uL (4.20-5.00); WBC 7.3 thou/uL (4.0-11.0)
[2020-11-05 11:23] LABS: URINE BLOOD NEGATIVE (Negative); URINE CLARITY CLEAR; URINE COLOR YELLOW; URINE GLUCOSE-RANDOM TRACE (Negative); URINE KETONES 1+ (Negative); URINE PROTEIN TRACE (Negative); URINE SPECIFIC GRAVITY 1.025 (1.005-1.030)
[2020-11-05 11:24] LABS: URINE BILIRUBIN 2+ (Negative); URINE LEUKOCYTES-REFLEX 2+ (Negative); URINE NITRITE-REFLEX POSITIVE (Negative)
[2020-11-05 11:25] LABS: ICTOTEST (BILI CONFIRMATORY) Positive (Negative)
[2020-11-05 11:28] LABS: CRYSTALS None Seen /LPF (None Seen); FINE GRANULAR CASTS 0-3 Few /LPF (None Seen); HYALINE CASTS 0-3 Few /LPF (None Seen); SQUAMOUS 0-3 Few /LPF (0-3); URINE RBC 0-2 Rare /HPF (0-2); URINE WBC-REFLEX 6-15 Few /HPF (0-5)
[2020-11-05 11:30] LABS: PROTIME 10.5 Seconds (9.20-11.50)
[2020-11-05 11:33] LABS: ALBUMIN 3.5 g/dL (3.4-5.0); CALCIUM 9.7 mg/dL (8.5-10.1); CREATININE 1.2 mg/dL (0.6-1.3); POTASSIUM 4.5 mmol/L (3.5-5.1); TOTAL BILIRUBIN 0.8 mg/dL (<0.1-1.0); TOTAL PROTEIN 7.6 g/dL (6.4-8.2)
--- NOTE | 2020-11-05 12:00 | EKG ---
[place] [address] ELECTROCARDIOGRAM REPORT Name: VANCE STEINBERG Room: [facility]#: [id number] Admission: 11/05/20 Attend Phys: Urban Rogers, Discharge: Date of : 50 Date of Service: 11/05/20 1126 Report #: [id number] THIS REPORT FOR: //name// [facility] Test Date: 2020-11-05 Test Time: 11:26:00 Pat Name: VANCE STEINBERG Department: Room: Gender: F Burr Sander: : 1950 Requested By: Urban Rogers Order Number: [id number] Guille MD: Sonu Mckeon Measurements Intervals [place] Rate: 86 P: 38 FL: 139 QRS: 40 QRSD: 99 T: 38 QT: 378 QTc: 452 Interpretive Statements Sinus rhythm Compared to ECG 11/23/2018 14:49:41 Prolonged QT interval no longer present Electronically Signed On 11-05-2020 11:59:59 CDT by Sonu Mckeon [email or web address] <ELECTRONICALLY SIGNED> By: Sonu Mckeon MD, [facility] 11/05/20 1159 1126 1126 Sonu Mckeon MD, [facility] /EPI
== END ==
LOC: M.LAB 10:07
PROVIDERS: ATTEND Orthopaedic Surgery
DX: Z01.812 Encounter for preprocedural laboratory examination (principal)

== ENCOUNTER 2020-11-10 06:15 | Inpatient (IN) | payer MEDICARE, OTHER ==
[~2020-11-10] VITALS: Ht 152.4 cm; Wt 68.0 kg
[2020-11-10 11:13] VITALS: BP 116/70
[2020-11-10 20:00] VITALS: BP 130/76
--- NOTE | 2020-11-11 05:11 | NUR ---
ASSESSMENT: PT REMAIN ALERT AND ORIENT TIMES FOUR, FORGETFUL AT TIMES. PT REQUESTED AMBIEN TO SLEEP. TREMORS NOTED WHEN PT IS ANXIOUS. VSS, AFEBRILE. HEMAVAC DRAIN INTACT. SS OUTPUT FROM DRAIN. PRIN PAIN MEDICATIONS GIVEN WITH GOOD RELIEF PER PT. UP TO BSC WITH SBA. DRESSING ON RIGHT HIP C/D/I. PT DESATS WHILE ASLEEP ON 1 LITER, PT INCREASED TO 2 LITERS WHILE ASLEEP, CAPNOGRAPHY CONTINUES. SLOW PROGRESS TOWARDS DC GOALS, WILL CONTINUE.
[2020-11-11 06:06] LABS: HEMATOCRIT 32.8 % (37.0-47.0); HEMOGLOBIN 11.9 gm/dL (12.0-15.0)
[2020-11-11 08:05] VITALS: BP 127/77
[2020-11-11 12:38] VITALS: BP 127/77
--- NOTE | 2020-11-11 12:43 | NUR ---
Pt is A&O. Resides at home with . Normally independent. Pt has a walker at home, does not normally use. Pt to dc home either later today or tomorrow with HH, [facility]HAEL [facility] CM called Pt's [facility], [facility], cost is $208.28. Per Pt, Dr Tinoco informed Pt that if script is too expensive she could take the aspirin dosage that he informed her of, updated nurse. in room and will transport home.
[2020-11-11 13:05] VITALS: BP 127/77
[2020-11-11 14:19] VITALS: BP 127/77
[2020-11-11] MEDS ORDERED: XARELTO10 MG PO (14:58)
--- NOTE | 2020-11-11 15:15 | NUR ---
PATIENT DISCHARGED TO HOME WITH HOME HEALTH. DISCHARGE PAPERS REVIEWED AND SIGNED. PRESCRIPTIONS TRANSMITTED TO PHARMACY. IV REMOVED. PATIENT DENIES ANY FURTHER NEEDS. PATIENT TAKEN BY WHEELCHAIR TO EXIT. LEFT WITH .
[2020-11-11 16:46] VITALS: BP 127/77
--- NOTE | 2020-11-12 22:27 | OP ---
[facility] [address] [place] [address] OPERATIVE REPORT Name: VANCE STEINBERG Room: [address] M.R.#: [id number] Admission: 11/10/20 Attend Phys: Urvashi Kim Discharge: 11/11/20 Date of : 50 Report #: [id number] THIS REPORT FOR: cc: Mona Lee Linda J. DO Greiner, Robert F. II DO ~ DATE OF SURGERY: 11/10/2020 PREOPERATIVE DIAGNOSIS: Right hip osteoarthritis. POSTOPERATIVE DIAGNOSIS: Right hip osteoarthritis. PROCEDURE: Right total hip arthroplasty. SURGEON: Urban Rogers II, DO MANAGER COMMERCIAL REAL ESTATE: None. ANESTHESIA: General endotracheal. ESTIMATED BLOOD LOSS: 400 mL. ANTIBIOTICS: Ancef preoperatively. DRAINS: Medium Hemovac. COMPLICATIONS: None. INDICATIONS: The patient is stable to recovery room. IMPLANTS: Listed in the operative record and progress note. BRIEF HISTORY: The patient was seen in the preoperative area. Preoperative H and P was performed. Site was marked, questions were answered. Risks and benefits were discussed with the patient in detail about surgery. The patient wished to proceed, assuming all risks. DESCRIPTION OF PROCEDURE: The patient was taken to the operative suite and placed supine on the table, given appropriate anesthesia, the patient's operative hip was placed in the Prosser table leg de la cruz and sterilely prepped and draped in the supine position. Surgery began ____ incision. This was carried down to subcutaneous tissues through the anterior portion of the hip. A small celia was made in the tensor fascia, it was then split along its fibers and retracted laterally. An H capsulotomy was then performed and a careful hemostasis was obtained with electrocautery and Aquamantys. The head and neck cutting alignment guide was then checked [place] [address] OPERATIVE REPORT Name: VANCE STEINBERG Room: [address]#: [id number] Admission: 11/10/20 Attend Phys: Urvashi Kim Discharge: 11/11/20 Date of : 50 Report #: [id number] Appropriate cut was made in the head and neck and this was removed, attention was turned to the acetabulum. Excess labrum was removed. It was then reamed in sequential fashion up to the appropriate size, which showed excellent bleeding bone and excellent position on fluoroscopic guidance. The acetabular cup was then malleted into position and secured with cancellous screws. Metal liner was then applied. The patient's leg was then rotated and extended to the Prosser table to expose the femur. It was then broached in sequential fashion after appropriate size. The appropriate neck was then trialed with appropriate head length and she had excellent fit and fill and excellent stability of the hip through all range of motion. These trials were removed. The final stem was then malleted into position and the final head was then malleted in position, it was reduced in appropriate fashion, checked with C-arm for appropriate leg length and shown to have excellent leg length throughout the exam without evidence of dislocation upon range of motion and shuck testing. Wound was then copiously irrigated. Hemostasis was maintained with electrocautery and Aquamantys. The pain cocktail was injected. A drain was activated. The H capsulotomy was then closed utilizing #1 Vicryl in [id number] fashion. Tensor fascia was closed with #1 Vicryl in a running fashion. Skin was closed with 2-0 Vicryl and a running 3-0 Monocryl with Dermabond. Sterile dressing applied. The patient was transported to the recovery room in stable condition. Counts were correct throughout the procedure. <ELECTRONICALLY SIGNED> By: Urban Rogers II, DO 11/12/207 2202Redel Rogers II, DO /nt
== END 2020-11-11 15:15 | disposition home health service (06) | DRG 470 ==
LOC: M.ORTHSURG 06:15 → M.3W 09:45 → M.TBA 09:45 → M.ORTHSURG 10:08 → M.3W 15:47
PROVIDERS: Orthopaedic Surgery; ADMIT Internal Medicine; ATTEND Internal Medicine
PROC: 0SR903A Replacement of Right Hip Joint with Ceramic Synthetic Substitute, Uncemented, Open Approach (ICD-10-PCS; principal; 2020-11-10)
DX: M16.11 Unilateral primary osteoarthritis, right hip (principal); M87.88 Other osteonecrosis, other site; K21.9 Gastro-esophageal reflux disease without esophagitis; I10 Essential (primary) hypertension; K58.9 Irritable bowel syndrome, unspecified; Z88.1 Allergy status to other antibiotic agents; Z88.5 Allergy status to narcotic agent; Z88.2 Allergy status to sulfonamides; Z88.8 Allergy status to other drugs, medicaments and biological substances

== ENCOUNTER → 2020-12-23 | Outpatient (CLI) | payer MEDICARE, OTHER ==
[~2020-12-23] MED LIST changes: +XARELTO10 MG PO
== END ==
LOC: M.RAD 11:55
PROVIDERS: ATTEND Orthopaedic Surgery
DX: M16.11 Unilateral primary osteoarthritis, right hip (principal); M85.88 Other specified disorders of bone density and structure, other site

== ENCOUNTER → 2021-01-14 | Outpatient (CLI) | payer MEDICARE, OTHER | LOC: M.RAD 01-06 14:30 | PROVIDERS: ATTEND Family Medicine | DX: M85.88 Other specified disorders of bone density and structure, other site (principal); M81.0 Age-related osteoporosis without current pathological fracture ==

== ENCOUNTER → 2021-04-26 | Outpatient (CLI) | payer OTHER | LOC: M.CT 08:51 | PROVIDERS: ATTEND Family Medicine | DX: Z13.6 Encounter for screening for cardiovascular disorders (principal); I25.10 Atherosclerotic heart disease of native coronary artery without angina pectoris ==

== ENCOUNTER → 2021-05-26 | Outpatient (CLI) | payer MEDICARE, OTHER | LOC: M.RAD 10:46 | PROVIDERS: ATTEND Orthopaedic Surgery | DX: M16.11 Unilateral primary osteoarthritis, right hip (principal); M47.817 Spondylosis without myelopathy or radiculopathy, lumbosacral region; M85.851 Other specified disorders of bone density and structure, right thigh ==